=== PATIENT | female | born 1985 | race Caucasian/White ===

== ENCOUNTER 2016-07-25 10:04 | Day surgery (SDC) | payer OTHER ==
[2016-07-22 10:23] LABS: HEMATOCRIT 37.6 % (36.0-47.0); HGB HCT DIFFERENCE -1.6; MEAN CORPUSCULAR HEMOGLOBIN 26.1 pg (27.0-33.4); MEAN CORPUSCULAR VOLUME 82 fl (80-97); RED CELL DISTRIBUTION WIDTH 16.8 % (11.5-14.0); WHITE BLOOD COUNT 7.5 10^3/uL (4.0-10.5)
[2016-07-22 10:26] LABS: APPEARANCE,URINE CLEAR; BILIRUBIN,URINE NEGATIVE (NEGATIVE); GLUCOSE, URINE NEGATIVE (NEGATIVE); KETONES,URINE NEGATIVE (NEGATIVE); LEUKOCYTE ESTERASE,URINE NEGATIVE (NEGATIVE); NITRITE,URINE NEGATIVE (NEGATIVE); PROTEIN,URINE NEGATIVE (NEGATIVE); URINE SPECIFIC GRAVITY 1.005; UROBILINOGEN,URINE NEGATIVE mg/dL (<2.0)
[~2016-07-25 10:04] MED LIST: ACETAMINOPHEN 100 ML IV SCH; BUPIVACAINE HCL 0.25% /EPINEPHRINE INJ/PF 30 ML SDV ONE; CEFAZOLIN 2 GM/D5W RTU 2 GM/50 ML RTUPB IV SCH; LACTATED RINGERS 1000 ML IV PRN; LIDOCAINE 0.5% INJ-PF (5 MG/ML) 50 ML SDV SUBCUT PRN
[2016-07-25] MEDS ORDERED: FENTANYL CITRATE INJ/PF 100 MCG/2 ML AMPUL ONE (11:23)
[2016-07-25] MEDS ORDERED: MIDAZOLAM 2 MG/2 ML INJ ONE (11:23)
[2016-07-25] MEDS ORDERED: ACETAMINOPHEN 100 ML IV ONE (11:24)
[2016-07-25] MEDS ORDERED: PROPOFOL INJ 200 MG/20 ML VIAL IV ONE (11:24)
[2016-07-25] MEDS ORDERED: DIPHENHYDRAMINE HCL 50 MG/ML VIAL IV PRN (11:59)
[2016-07-25] MEDS ORDERED: MEPERIDINE HCL/PF INJ 25 MG/1 ML DISP.SYRIN IV PRN (11:59)
[2016-07-25] MEDS ORDERED: MORPHINE SULFATE 10 MG/ML INJ IV PRN (11:59)
[2016-07-25] MEDS ORDERED: FENTANYL CITRATE INJ/PF 100 MCG/2 ML AMPUL IV PRN ×3 (11:59)
[2016-07-25] MEDS ORDERED: PROMETHAZINE HCL INJ 25 MG/1 ML VIAL IV PRN ×2 (11:59)
[2016-07-25] MEDS ORDERED: SILVER SULFADIAZINE 1% CREAM 25 GM ONE (12:00)
[2016-07-25] MEDS ORDERED: HYDROCODONE/ACETAMINOPHEN 5-325 MG TABLET PO PRN ×2 (12:45)
[2016-07-25] MEDS ORDERED: IBUPROFEN 800 MG TABLET PO PRN (12:46)
--- NOTE | 2016-07-25 12:53 | OPERATIVE REPORT E ---
Operative Report NAME: JANINE TALAMANTES : 1985 AGE: 30Y DATE OF SURGERY: 07/25/2016 ROOM: PREOPERATIVE DIAGNOSIS: Vulvar lesions refractory to medical therapy. POSTOPERATIVE DIAGNOSIS: Vulvar lesions refractory to medical therapy. OPERATION PERFORMED: Excision of vulvar lesions. SURGEON: CORBY LOPEZ M.D. ANESTHESIA: General endotracheal. ESTIMATED BLOOD LOSS: Five mL. SPECIMEN TO PATHOLOGY: Vulvar lesions. FINDINGS: There was a large, raised, irregular, verrucous lesion over the perineal body with some surrounding satellite lesions. This area took up approximately 3 cm of tissue. There were smaller verrucous lesions on the labia majora. These were mainly on the patient's left. These were removed with shave biopsy. DESCRIPTION OF PROCEDURE: After discussing risks, benefits, and alternatives of the procedure and obtaining informed consent, patient was taken to the operating room where general anesthesia was achieved. She was positioned in the dorsal lithotomy position, prepped and draped in the usual standard fashion. Bladder was drained via in and out catheterization. The small verrucous appearing lesions were each injected immediately underneath with 0.25% Marcaine with epinephrine. Shave biopsies were performed and the base of the lesions cauterized. Excellent hemostasis was observed. Next, the large lesion to be excised was injected underneath with 0.25% Marcaine with epi. Using an elliptical excision in an elliptical fashion the area on the perineal body was excised. Due to the larger wider base of this defect, 2-0 Vicryl was used to reapproximate deep tissue to take tension off the superficial edges of the wound. This was done in an interrupted fashion. Next, 3-0 Monocryl was used to close the incision. This was done in a subcuticular fashion. Excellent hemostasis was observed. Silvadene was placed over the site of the shave biopsies. The patient was taken out of dorsal lithotomy and to recovery in stable condition. All sponge, needle, lap, and instrument counts were correct x2. DICTATING PHYSICIAN: CORBY LOPEZ M.D. [id number] PHY#: [id number] ID: [id number] JOB#: [id number] ACCT: [id number] cc:CORBY LOPEZ M.D. >
[2016-07-25] MEDS ORDERED: DEXAMETHASONE SOD PHOSPHATE INJ 4 MG/1 ML VIAL ONE (14:10)
[2016-07-25] MEDS ORDERED: LIDOCAINE 2% INJ-PF (20 MG/ML) 10 ML AMPUL ONE (14:10)
[2016-07-25] MEDS ORDERED: ONDANSETRON HCL INJ/PF 4 MG/2 ML SDV ONE (14:10)
[2016-07-25] MEDS ORDERED: SUCCINYLCHOLINE CHLORIDE INJ 200 MG/10 ML VIAL ONE (14:10)
[2016-07-25 15:05] VITALS: BP 122/81
== END 2016-07-25 15:05 | disposition home or self-care (01) ==
LOC: OROUT 10:04
PROVIDERS: ATTEND Specialist
PROC: 0UBMXZX Excision of Vulva, External Approach, Diagnostic (ICD-10-PCS; principal; 2016-07-25 11:45)
DX: A63.0 Anogenital (venereal) warts (principal); D64.9 Anemia, unspecified; Z88.1 Allergy status to other antibiotic agents; Z91.040 Latex allergy status
CPT/HCPCS: 36415; 85027; 81025; 81001; 88305 ×2; 11423; J2250; J3490 ×2; J1100; J3010; J0330; J2405; J2704; J0690; J0131; 940